=== PATIENT | male | born 1965 | race Caucasian/White ===

== ENCOUNTER 2019-11-26 08:27 | Emergency (ER) | payer OTHER, SELFPAY ==
--- NOTE | ~2019-11-26 | XR_ITS ---
EXAMINATION: XR abdomen/kub 1V EXAM DATE: 11/26/2019 09:07 INDICATION: Left distal ureteral 2.5 mm stone. TECHNIQUE: Frontal projection(s) of the abdomen for interpretation. There is no prior study for kunal beckwith. FINDINGS: There is expected amount of colonic stool and gas. No small bowel dilation, nonobstructiv e bowel gas pattern. There are 2 small densities in the left side of the pelvis, with the more medial one the most likely candidate for distal left ureteral stone seen on CT, finding indicated. There is no organomegaly susp ected. The bones are unremarkable. IMPRESSION: Possible identification of distal left ureteral stone. Reviewed, dictated and finalized at location A. TRIMMER
--- NOTE | ~2019-11-26 | CT_ITS ---
EXAMINATION: CT abdomen pelvis wo con EXAM DATE: 11/26/2019 09:05 INDICATION: Left flank pain. Kidney stones. TECHNIQUE: Spiral CT of the abdomen and pelvis was performed without contrast. Axial, coronal and sag ittal images were reviewed. The dose-length product (DLP) for this examination was 225.43 mGy-cm. T he exposure was tailored according to patient size (auto mA exposure control), and iterative reconstr uction (ASIR) was used as additional dose reduction technique. Comparison is made to prior examinatio n from 08/03/2004. FINDINGS: There is 2.5 mm stone in the distal aspect left ureter, about 1 cm from the ureterovesicula r junction, with mild hydroureteronephrosis and perinephric fat stranding. There is punctate left inf erior calyceal stone. There is mild prostatomegaly. The bladder is unremarkable. The liver, spleen, adrenal glands and pancreas are unremarkable. Gallbladder is unremarkable. No biliary obstruction. There is no retroperitoneal or pelvic lymphadenopathy. Small bilateral inguinal fat-containing he rnias. The appendix is normal. The stomach and small bowel are unremarkable. There is expected amount of c olonic stool. No free intraperitoneal gas. The heart is normal in size. There are no pericardial or pleural effusions. The lung bases are unremarkable. There are no osteoblastic or osteolytic les ions identified. IMPRESSION: 1. Left distal ureteral 2.5 mm stone, mild obstructive nephropathy. Reviewed, dictated and finalized at location A. E SALES ASSOCIATE
[2019-11-26 08:31] VITALS: BP 132/99; PULSE 73; RESP 20; TEMP 36.1; O2SAT 100
--- NOTE | 2019-11-26 08:39 | ED.BACK ---
HPI - Back Pain/Injury General Chief Complaint: Urogenital-Male Stated Complaint: back pain/nausea Time Seen by Provider: 11/26/19 08:36 Source: patient Mode of arrival: ambulatory Limitations: no limitations History of Present Illness HPI Narrative: Pt is a 53 y/o male who presents to the ED with c/o sudden onset of lt flank pain that radiates to his groin. He reports assocaited nausea, sweats, and dry heaves. He denies a H/o kidney stones and notes that he has been talking to his friend Dr. Solis who is a urologist and he suggested he come to the ED. He has not taken any pain medicine. MD elicited complaint: other (flank pain) Onset (ago): hour(s) (this morning) Timing: constant Location: left flank Radiation: groin Context: unknown (sudden onset) Associated symptoms: other (nausea, dry heaves, sweats) Related Data Allergies Allergy/AdvReac Type Severity Reaction Status Date / Time Sulfa (Sulfonamide Allergy Intermediate RASH, HIVES Verified 11/26/19 08:38 Antibiotics) Review of Systems Review of Systems: All systems reviewed & are unremarkable except as noted in HPI and below Constitutional: Constitutional: Reports other (sweats) Gastrointestinal: Gastrointestinal: Reports nausea and Reports other (dry heaves) Genitourinary: Genitourinary: Reports flank pain (lt) PMFSH Past Medical History Medical History 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 CARDIOVASCULAR: Regular rate and rhythm without murmurs rubs or gallops. ABDOMINAL: Soft, nontender, nondistended, no rebound or guarding left flank tenderness MUSCULOSKELETAl: Moves all extremities. No clubbing, cyanosis or edema. NEURO: Awake and alert. Following commands, speech normal, no focal deficits SKIN:: Warm, dry. No rashes lesions or abrasions PSYCHIATRIC: Normal affect/mood, Course Course Emergency Course: Discussed with patient results of workup and diagnosis. Discussed need for follow-up with primary care, proper use of medication, and reasons to return to the emergency department. Patient understands and agrees to current treatment plan Consultations Consultation #1: Dr. Solis the urologist is in the ED evaluating pt. Recommends D/C and Rx of Bactrim x3 days Date: 11/26/19 Time: 09:48 Vital Signs Vital signs: Vital Signs Temperature 97 F L 11/26/19 08:31 Pulse Rate 73 11/26/19 08:31 Respiratory Rate 20 11/26/19 08:31 Blood Pressure 132/99 H 11/26/19 08:31 Pulse Oximetry 100 11/26/19 08:31 Temperature 97 F L 11/26/19 08:31 Pulse Rate 73 11/26/19 08:31 Respiratory Rate 20 11/26/19 08:31 Blood Pressure 132/99 H 11/26/19 08:31 Pulse Oximetry 100 11/26/19 08:31 MDM - Back Pain/Injury Lab Data Result diagrams: 11/26/19 08:49 11/26/19 09:15 Labs: Lab Results 11/26/19 11/26/19 11/26/19 Range/Units 08:49 08:49 09:15 WBC 4.9 (4.5-10.0) K/mm3 RBC 5.39 (4.6-6.20) M/mm3 Hgb 17.0 (14.0-18.0) g/dL Hct 51.1 (42.0-52.0) % MCV 94.8 (80-100) fl MCH 31.5 (26-34) pg MCHC 33.3 (32-36) g/dl RDW 13.0 (11.5-14.5) % Plt Count 246 (150-375) k/mm3 MPV 10.3 (7.4-10.4) fl Immature Gran % (Auto) 0.2 (0-0.5) % Neut % (Auto) 52.3 (45.5-73.1) % Lymph % (Auto) 37.7 (18.3-44.2) % [place] % (Auto)
[2019-11-26] MEDS: LACTATED RINGERS 1,000 ML 999 ML IV CONT (08:47)
[2019-11-26] MEDS: ONDANSETRON INJ 4 MG/2 ML VIAL IV PUSH (08:47)
[2019-11-26] MEDS: MORPHINE SULFATE 4 MG/ML INJ IV PUSH ×2 (08:48→10:21)
[2019-11-26 08:55] LABS: Basophils Percent Auto 0.6 % (0.2-1.2); Eosinophils Absolute Auto 0.1 K/mm3 (0-0.3); Eosinophils Percent Auto 1.2 % (0-4.4); Hematocrit 51.1 % (42.0-52.0); Immature Granulocyte Absolute 0.01 K/mm3 (0.00-0.031); Immature Granulocyte Percent A 0.2 % (0-0.5); Lymphocytes Absolute Auto 1.83 K/mm3 (0.9-3.2); Lymphocytes Percent Auto 37.7 % (18.3-44.2); Mean Corpuscular HGB Conc 33.3 g/dl (32-36); Mean Corpuscular Hemoglobin 31.5 pg (26-34); Mean Corpuscular Volume 94.8 fl (80-100); Mean Platelet Volume 10.3 fl (7.4-10.4); Monocytes Absolute Auto 0.4 K/mm3 (0.1-0.6); Neutrophils Absolute Auto 2.5 K/mm3 (1.3-6.7); Neutrophils Percent Auto 52.3 % (45.5-73.1); Platelet Count Result 246 k/mm3 (150-375); Red Blood Count 5.39 M/mm3 (4.6-6.20); White Blood Count 4.9 K/mm3 (4.5-10.0)
[2019-11-26 09:00] LABS: Add Urine Microscopic? YES; Appearance Urine Cloudy (Clear); Bilirubin Urine Negative (Negative); Blood Urine 3+ (Negative); Calcium Oxalate Crystals Urine Many /hpf; Color Urine Yellow (Yellow); Glucose Urine UA Negative (Negative); Ketones Urine 1+ mg/dL (Negative); Leukocyte Esterase Ur Negative LEU/UL (Negative); Mucus Urine Heavy /lpf; Nitrate Urine Negative (Negative); Protein Urine 1+ mg/dL (Negative); RBC Urine >75 /hpf (0-2); Specific Grav Ur 1.028 (1.001-1.035); Urobilinogen Urine Negative mg/dL (<2.0); WBC Urine 0-3 /hpf
[2019-11-26] MEDS: KETOROLAC 30 MG/ML VIAL (*BKC) IV PUSH (09:20)
[2019-11-26] MEDS: TAMSULOSIN HCL 0.4 MG CAPSULE PO (09:25)
[2019-11-26 09:32] LABS: Blood Urea Nitrogen 20 mg/dL (9-20); Calcium 9.4 mg/dL (8.4-10.2); Carbon Dioxide 20 mmol/L (22-30); Chloride 100 mmol/L (98-107); Estimated CRCL calculation 58 ml/min; Estimated Glomerular Filt Rate 58; Glucose 128 mg/dL (75-110); Potassium 4.2 mmol/L (3.4-5.0); Sodium 137 mmol/L (137-145)
--- NOTE | 2019-11-26 10:15 | WPDURCON ---
Assessment and Plan Assessment and plan (1) Left ureteral calculus: Code(s): N20.1 - Calculus of ureter Status: Acute Assessment and Plan: Have discussed treatment options with shi. Those include conservative management and being discharged with Flomax and Bactrim DS. He will strain his urine. Have also discussed ureteroscopy with stone extraction. He will call me Friday with his progress. He is due to go to [facility] next and thus we will need to have this addressed. If he develops any problems he will call us so we can deal with appropriately. Urology Consult Note HPI Date Seen: 11/26/19 Time Seen: 10:00 Requesting Physician: Dr. Godfrey Primary Care Provider: UNKNOWN,DOCTOR Consult Narrative Reason for consult: Left ureteral calculus Narrative: Nestor Leiva is a 53 year old male well known to me. He developed sudden onset of left flank pain this morning at which out while driving. He had some nausea and dry heaves associated with the. Denied fevers. He presented to the emergency room in [place] for further evaluation. The scan reveals a 2.5 mm distal left ureteral calculus. White count is normal renal function is normal. Urinalysis is nitrite leukocyte esterase negative. Pain is fairly well controlled after some narcotics at this point time. 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 HLD (hyperlipidemia) Migraine Nose fracture Sleep apnea Surgical History Surgical History H/O arthroscopy of left knee Hx of tonsillectomy Social History Social History Smoking status: Never smoker Meds Home Medications and Allergies Allergies Allergy/AdvReac Type Severity Reaction Status Date / Time Sulfa (Sulfonamide Allergy Intermediate RASH, HIVES Verified 11/26/19 08:38 Antibiotics) Vital Signs Vital Signs - 24 hr 11/26/19 08:31 Temperature 36.1 C L Pulse Rate 73 Respiratory Rate 20 Blood Pressure 132/99 H Pulse Oximetry 100 Exam Const: General: comfortable Eyes: General: appearance normal, both eyes and all related structures Resp: Effort & Inspection: normal respiratory effort Results Labs CBC & Chem 7: 11/26/19 08:49 11/26/19 09:15 Labs: Short CBC 11/26/19 Range/Units 08:49 WBC 4.9 (4.5-10.0) K/mm3 Hgb 17.0 (14.0-18.0) g/dL Hct 51.1 (42.0-52.0) % Plt Count 246 (150-375) k/mm3 BMP 11/26/19 09:15 Sodium 137 Potassium 4.2 Chloride 100 Carbon Dioxide 20 L BUN 20 Creatinine 1.30 Glucose 128 H Calcium 9.4 Urine 11/26/19 Range/Units 08:49 Urine Color Yellow (Yellow) Urine Appearance Cloudy H (Clear) Urine pH 5.0 (5.0-9.0) Ur Specific [place] 1.028 (1.001-1.035) Urine Protein 1+ H (Negative) mg/dL Urine Glucose (UA) Negative (Negative) mg/dL
[2019-11-26 11:44] VITALS: BP 129/90; PULSE 101; RESP 20; O2SAT 99
== END 2019-11-26 11:46 | disposition home or self-care (01) ==
PROVIDERS: Emergency Provider Emergency Medicine
DX: N20.1 Calculus of ureter (principal); N13.8 Other obstructive and reflux uropathy; E78.5 Hyperlipidemia, unspecified; G47.30 Sleep apnea, unspecified; Z85.72 Personal history of non-Hodgkin lymphomas
CPT/HCPCS: 36415; 74018; 74176; 80048; 81001; 85025; 96361; 96374; 96375; 96376; 99284; A9270; J1885; J2270; J2405; J7120

== ENCOUNTER 2019-12-20 13:58 | Outpatient (CLI) | payer OTHER, SELFPAY ==
--- NOTE | ~2019-12-20 | XR_ITS ---
XR abdomen/kub 1V 12/20/2019 14:18 Indication: Left ureteral stone Procedure: KUB Comparison: 11/26/2019 Findings: There is a left internal ureteral stent. No renal/ureteral stones are identified. Bowel gas pattern is nonobstructive. No acute osseous abnormality. Impression: 1: No acute abdominal abnormality. Reviewed, dictated and finalized at location B. [employer] Impression: 1: No acute abdominal abnormality.
--- NOTE | ~2019-12-20 | CT_ITS ---
EXAMINATION: CT abdomen pelvis wo con DATE: 12/20/2019 14:23 INDICATION: Left ureteral stone. TECHNIQUE: Computed tomography (CT) of the abdomen and pelvis was performed without intravenous contr ast. Automated exposure control and iterative reconstruction technique were employed. The dose-length product was 358.26 mGy-cm. COMPARISON: CT abdomen and pelvis 11/26/2019 FINDINGS: The visualized portions of the lung bases demonstrate mild atelectasis. No pleural effusion . The heart size is normal. No pericardial effusion. The liver, gallbladder, spleen, pancreas, adrena l glands, and right kidney are normal. There is a left internal ureteral stent in expected position. There is a 3 mm stone in left kidney lower pole. The prostate is moderately enlarged. There are bilat eral inguinal hernias containing fat. There are no dilated loops of bowel. The appendix is normal. Th ere are no pathologically enlarged lymph nodes. There is no free intraperitoneal fluid. There is mild thoracolumbar spondylosis. There is mild chronic anterior wedging of T12 and L1 vertebral bodies. IMPRESSION: 1. 3 mm nonobstructing left kidney stone. 2. Left internal ureteral stent in expected position. Reviewed, dictated and finalized at location A. REPAIRER
== END 2019-12-20 13:59 | disposition home or self-care (01) ==
PROVIDERS: Visit Provider Urology
DX: N20.1 Calculus of ureter (principal)
CPT/HCPCS: 74018; 74176

== ENCOUNTER 2019-12-21 00:45 | Day surgery (SDC) | payer OTHER, SELFPAY ==
[2019-12-20 15:07] VITALS: BMI 28.0
[2019-12-21] VITALS (7 sets, daily range): BP systolic 112–138; BP diastolic 85–98; PULSE 71–90; RESP 13–18; TEMP 36.2–36.4; O2SAT 97–98; BMI 28.3
--- NOTE | ~2019-12-21 | XR_ITS ---
EXAMINATION: XR fluoroscopy no charge DATE: 12/21/2019 12:19 INDICATION: Left internal ureteral stent removal TECHNIQUE: Fluoroscopic images from a left ureteral stent stent removal are submitted for review. 20 seconds of fluoroscopy time. 3 fluoroscopic images. FINDINGS: Serial images demonstrate removal of left internal ureteral stent. Please refer to procedural report for details. Visualized bowel gas pattern is nonobstructive. IMPRESSION: 1. Left internal ureteral stent removal. Please refer to real-time procedural findings for details. Reviewed, dictated and finalized at location B. O MACHINE OPERATOR
--- NOTE | 2019-12-21 09:05 | WPDANESEPPF ---
Anes - Initial Pre Proc Eval Procedure: Operation Date: 12/21/19 11:30 Proposed Procedures p Cystoscopy, Left Ureteroscopy, Left Retrograde Pyelogram, Left Stone Extraction, Possible Left Stent Exchange - Rashaad Solis MD s Possible Holmium Laser Procedure - Rashaad Solis MD Date/Time: 12/21/19 09:05 Surgeon: Rashaad Solis MD Pre Op Diagnosis: Left Ureteral Stone Patient Data Age: 54 Gender: M Height: 1.75 m Weight: 86.18 kg Allergies Allergy/AdvReac Type Severity Reaction Status Date / Time Sulfa (Sulfonamide Allergy Intermediate RASH, HIVES Verified 12/20/19 15:09 Antibiotics) Home Medications Medication Instructions Recorded Confirmed Type Vitamin B-12 1 tablet PO DAILY 12/20/19 12/20/19 History Patient hx anesthesia problems: none Family hx anesthesia problems: none PMFSH Past Medical History Medical History (Updated 12/21/19 @ 09:06 by Kun Cordoba MD) 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 HLD (hyperlipidemia) Migraine Nose fracture Overweight (BMI 25.0-29.9) Sleep apnea Surgical History Surgical History H/O arthroscopy of left knee Hx of tonsillectomy Social History Social History Smoking status: Never smoker Anes - Eval Final PreProcedure Day of Procedure 12/21/19 09:05 Patient weight: overweight Heart: regular rate and rhythm Lungs: clear to auscultation and normal air movement Airway: Mallampati scale class II Neurological: alert and oriented Last oral intake: >/= 8 hours ASA classification: II Emergent: no Anesthetic plan: proceed Anesthesia type and monitoring: general LMA Informed Consent: The patient's anesthetic plan and its attendant risks and benefits were discussed with the patient/family/POA. Questions were solicited and answers provided to the satisfaction of the patient/family/POA.
[2019-12-21] MEDS: LACTATED RINGERS 1,000 ML 30 ML IV CONT (10:45)
--- NOTE | 2019-12-21 11:01 | WPDHPUPDATE1 ---
History and Physical Update Update Date/Time: 12/21/19 11:01 History and Physical has been reviewed, including an updated exam of the patient. There are NO changes in the patient's condition. Risks, benefits, and alternatives have been discussed and questions answered. Patient agrees to proceed with procedure. Plan for cystoscopy left retrograde pyelogram left ureteroscopy with stone extraction, possible laser possible stent exchange.
[2019-12-21] MEDS: ceFAZolin 2 GM/D5W 50 ML 2 GM/50 ML BAG IVPB (11:24)
[2019-12-21] MEDS: LIDOCAINE HCL 2% GEL UROJET 10 ML PKG MUCOUS MEM (12:16)
--- NOTE | 2019-12-21 12:17 | PM.PROC ---
Procedure Note - Detailed Date of procedure: 12/21/19 Pre-op diagnosis: Left Ureteral Stone Procedure performed: Cystoscopy with left ureteroscopy and stone extraction of lower pole calculus, stent removal Description of procedure: Patient was taken to the operative suite and correctly identified. Once general anesthesia was obtained was placed in dorsal lithotomy position prepped and draped in usual sterile fashion. Nineteen Ukrainian scope was inserted in the bladder. The stent was visualized brought out the meatus and a guidewire placed through it. A mini flexible ureteral scope was then inserted over the guidewire up to the kidney. There were no ureteral stones noted. Kidney was inspected in its entirety. He was found to have a small stone impacted in the calyceal fornix. It was still attached to the underlying mucosa. We were able to retrieve it with a 0 degree basket. Reinspection reveals no large stones. It is apparent that he has a small fragment and another calyx which has not worked its way out of the fornix at this time. Since there was little manipulation a stent was not replaced. Bladder was drained and 2% viscous lidocaine was inserted into the urethra. He is taken recovery stable condition. We will plan on obtaining a renal ultrasound in about a month's time. Anesthesia: GLMA Surgeon: Rashaad Solis MD Drains: No Packing: No Pathology: yes Complications: No immediate complications Condition: stable Disposition: PACU
--- NOTE | 2019-12-21 13:24 | SUR.PHASEII ---
1324; PT WALKED TO BATHROOM. GAIT STEADY. ATTEMPTING TO VOID.
--- NOTE | 2019-12-21 14:15 | SUR.PHASEII ---
1330; PT VOIDED. STATES SLIGHTLY BLOODY. MILD BURNING. 1350; PT AWAKE AND ALERT. STATES PAIN MUCH BETTER AND DOWN TO 2-3/10 NOW. READY TO GO HOME
== END 2019-12-21 14:05 | disposition home or self-care (01) ==
PROVIDERS: Visit Provider Urology
PROC: (CPT 52352; principal; 2019-12-21 11:30)
DX: N20.1 Calculus of ureter (principal); E78.5 Hyperlipidemia, unspecified; B27.09 Gammaherpesviral mononucleosis with other complications; G47.30 Sleep apnea, unspecified
CPT/HCPCS: 52352; 82365; 88300; A9270; C1769; J0690; J1100; J2250; J2405; J2704; J3010; J7120